=== PATIENT | male | born 1975 | race Caucasian/White ===

== ENCOUNTER → 2020-10-30 | Outpatient (CLI) | payer OTHER ==
[~2020-10-30] MED LIST: CRESTOR10 MG PO; LEXAPRO5 MG PO; MONTELUKAST SOD10 MG PO
== END ==
LOC: DX 13:53 → EDSTATUS 11-01 11:00
PROVIDERS: ATTEND Internal Medicine Gastroenterology
DX: Z01.810 Encounter for preprocedural cardiovascular examination (principal); K62.5 Hemorrhage of anus and rectum; R19.4 Change in bowel habit
CPT/HCPCS: 93005

== ENCOUNTER → 2023-04-15 | Outpatient (REF) | payer OTHER ==
[~2023-04-15] MED LIST changes: +IOPAMIDOL 370 MG/ML 100 ML INFUS..BTL INJ ONE; +METOPROLOL TARTRATE INJ 1 MG/ML VIAL ONE; +NITROGLYCERIN 0.4 MG SUBL ONE; +SODIUM CHLORIDE 0.9% 100 ML ONE
== END ==
LOC: CT 07:11
PROVIDERS: ATTEND Family Medicine
DX: Z13.6 Encounter for screening for cardiovascular disorders (principal); Z82.49 Family history of ischemic heart disease and other diseases of the circulatory system
CPT/HCPCS: 75574; J7050; Q9967